=== PATIENT | female | born 1955 | race Caucasian/White ===

== ENCOUNTER → 2016-12-15 | Outpatient (CLI) | payer BC | LOC: CIMAGING 12:05 | DX: Z12.31 Encounter for screening mammogram for malignant neoplasm of breast (principal) | CPT/HCPCS: G0202 ==

== ENCOUNTER 2019-01-10 08:19 | Emergency (ER) | payer BC, OTHER ==
[2019-01-10] MEDS ORDERED: ASPIRIN 81 MG CHEWABLE TAB PO ONE (08:36)
[2019-01-10] MEDS ORDERED: NS 500 ML IV ONE (08:36)
--- NOTE | 2019-01-10 08:39 | EDPHY ---
H & P Stated Complaint: cp midsternal to back "vise" since 0700 Time Seen by Provider: 01/10/19 08:30 HPI/ROS: CHIEF COMPLAINT: Chest pain HISTORY OF PRESENT ILLNESS: Patient is a 63-year-old female with a history of high cholesterol, prediabetic and hormone replacement therapy who comes to the emergency department complaining of chest pain that began about 2 hr prior to arrival. She describes it as a vice and radiates to her back. No radiation to her neck or arm. No diaphoresis. No nausea. No lightheadedness or dizziness. No recent illness. They did take [address] trip about 3 weeks ago. She has not had any leg pain or swelling. She is not a smoker. Severity: Moderate Modifying factors: Constant REVIEW OF SYSTEMS: Constitutional: denies: chills, fever, recent illness, recent injury EENTM: denies: blurred vision, double vision, nose congestion Respiratory: denies: cough, shortness of breath Cardiac: See HPI Gastrointestinal/Abdominal: denies: abdominal pain, diarrhea, nausea, vomiting, blood streaked stools Genitourinary: denies: dysuria, frequency, hematuria, pain Musculoskeletal: denies: joint pain, muscle pain Skin: denies: lesions, rash, jaundice, bruising Neurological: denies: headache, numbness, paresthesia, tingling, dizziness, weakness Hematologic/Lymphatic: denies: blood clots, easy bleeding, easy bruising Immunologic/allergic: denies: HIV/AIDS, transplant 10 systems reviewed and negative except as noted EXAM: GENERAL: Well-appearing, well-nourished and in no acute distress. HEAD: Atraumatic, normocephalic. EYES: Pupils equal round and reactive to light, extraocular movements intact, sclera anicteric, conjunctiva are normal. ENT: TMs normal, nares patent, oropharynx clear without exudates. Moist mucous membranes. NECK: Normal range of motion, supple without lymphadenopathy or JVD. LUNGS: Breath sounds clear to auscultation bilaterally and equal. No wheezes rales or rhonchi. HEART: Regular rate and rhythm without murmurs, rubs or gallops. ABDOMEN: Soft, nontender, normoactive bowel sounds. No guarding, no rebound. No masses appreciated. BACK: No CVA tenderness, no spinal tenderness, step-offs or deformities EXTREMITIES: Normal range of motion, no pitting or edema. No clubbing or cyanosis. NEUROLOGICAL: Cranial nerves II through XII grossly intact. Normal speech, normal gait. 5/5 strength, normal movement in all extremities, normal sensation , normal reflexes PSYCH: Normal mood, normal affect. SKIN: Warm, dry, normal turgor, no visible rashes or lesions. Source: Patient, Family Exam Limitations: No limitations - Personal History Current Tetanus Diphtheria and Acellular Pertussis (TDAP): Yes - Medical/Surgical History Hx Asthma: No Hx Chronic Respiratory Disease: No Hx Diabetes: No Hx Cardiac Disease: Yes Hx Renal Disease: No Hx Cirrhosis: No Hx Alcoholism: No Hx HIV/AIDS: No Hx Splenectomy or Spleen Trauma: No Other PMH: PFO as child closed spontaneously - Family History Significant Family History: No pertinent family hx - Social History Smoking Status: Never smoked Alcohol Use: None Constitutional: Initial Vital Signs Temperature (C) 36.6 C 01/10/19 08:21 Heart Rate 61 01/10/19 08:21 Respiratory Rate 17 01/10/19 08:21 Blood Pressure 161/85 H 01/10/19 08:21 O2 Sat (%) 97 01/10/19 08:21 O2 Delivery Mode Room Air Allergies/Adverse Reactions: Sulfa (Sulfonamide Antibiotics) Allergy (Verified 01/10/19 08:20) Home Medications: Medication Instructions Recorded Progesterone 01/10/19 SIMVASTATIN 01/10/19 Testosterone 01/10/19 Medical Decision Making - Diagnostics EKG Interpretation: An EKG obtained and was read and documented in trace view. Please see trace view for full reading and report. Sinus rhythm, nonspecific T-wave inversion in anterior lead with less than 1 mm elevation in V3 only. A repeat EKG obtained and was read and documented in trace view. Please see trace view for full reading and report. Sinus rhythm, no change from previous Imaging: Discussed imaging studies w/ mail processing equipment mechanic Radiologist ED Course/Re-evaluation: 10:30 a.m. the patient is feeling completely better. We discussed her lab work and imaging an EKG which are reassuring. We engaged in shared decision making. She is agreeable to a repeat troponin 11 30. Will continue to observe. 11:50 p.m. The patient remains asymptomatic. Repeat troponin is negative. She feels reassured and is eager to go home. We discussed follow-up with cardiology for stress testing. Their office will call her today or tomorrow to schedule. Differential Diagnosis: Partial list of the Differential diagnosis considered include but were not limited to; anxiety, chest pain, acute coronary disease, GERD and although unlikely based on the history and physical exam, I also considered PE, dissection, pneumonia. - Data Points Laboratory Results: Laboratory Results 01/10/19 08:30 01/10/19 08:30 Medications Given: Discontinued Medications Aspirin (Aspirin) 324 mg PO EDNOW ONE Stop: 01/10/19 08:37 Last Admin: 01/10/19 08:52 Dose: 324 mg Sodium Chloride (Ns) 500 mls @ 1,000 mls/hr IV EDNOW ONE PRN Reason: Protocol Stop: 01/10/19 09:05 Last Admin: 01/10/19 08:53 Dose: 500 mls Point of Care Test Results: Chemistry 01/10/19 01/10/19 11:31 08:37 POC Troponin I 0.00 ng/mL ng/mL 0.01 ng/mL ng/mL (0.00-0.08) (0.00-0.08) Departure - Departure Disposition: Home, Routine, Self-Care Clinical Impression: Chest pain Qualifiers: Chest pain type: unspecified Qualified Code(s): R07.9 - Chest pain, unspecified Condition: Good Instructions: Chest Pain (ED) Referrals: JACQUIE BUENO [Primary Care Provider] - As per Instructions Judy Trujillo MD [Medical Doctor] - As per Instructions
--- NOTE | 2019-01-10 08:42 | CPEKG ---
Test Reason : OPEN Blood Pressure : / mmHG Vent. Rate : 053 BPM Atrial Rate : 054 BPM P-R Int : 141 ms QRS Dur : 103 ms QT Int : 450 ms P-R-T Axes : 013 -48 043 degrees QTc Int : 423 ms Sinus rhythm LAD, consider left anterior fascicular block Anterior infarct, age indeterminate Confirmed by Christiano Xie ([id number]) on 01/10/2019 8:41:32 AM Referred By: Christiano Xie Confirmed By:Christiano Xie
[2019-01-10 08:50] LABS: PLATELET COUNT 290 10^3/uL (150-400)
--- NOTE | 2019-01-10 09:06 | CPEKG ---
Test Reason : OPEN Blood Pressure : / mmHG Vent. Rate : 047 BPM Atrial Rate : 047 BPM P-R Int : 149 ms QRS Dur : 104 ms QT Int : 476 ms P-R-T Axes : 008 -35 046 degrees QTc Int : 421 ms Sinus bradycardia Atrial premature complex Left axis deviation Anterior infarct, age indeterminate Confirmed by Christiano Xie ([id number]) on 01/10/2019 9:06:12 AM Referred By: Christiano Xie Confirmed By:Christiano Xie
[2019-01-10 09:11] LABS: INR 0.95 (0.83-1.16); PROTIME(PATIENT) 12.3 SEC (12.0-15.0)
[2019-01-10 11:53] VITALS: BP 159/89
== END 2019-01-10 11:59 | disposition home or self-care (01) ==
DX: R07.9 Chest pain, unspecified (principal)
CPT/HCPCS: 84484-ER